=== PATIENT | male | born 1995 | race Caucasian/White ===

== ENCOUNTER 2025-02-25 20:43 | Emergency (ER) | payer OTHER ==
[~2025-02-25] VITALS: Ht 177.8 cm; Wt 82.0 kg
[2025-02-25 20:57] VITALS: O2SAT 98
[2025-02-25] MEDS: LORAZEPAM 1MG TABLET PO ONE (21:30)
[2025-02-25] MEDS: LIDOCAINE 5% PATCH TOP ONE (21:30)
[2025-02-25 22:18] VITALS: BP 121/77; PULSE 87; RESP 18; TEMP 37; O2SAT 100
== END 2025-02-25 22:27 | disposition home or self-care (01) ==
LOC: ER 20:43
DX: R51.9 Headache, unspecified (principal); Z98.890 Other specified postprocedural states
CPT/HCPCS: 99284